=== PATIENT | female | born 1955 | race Caucasian/White ===

== ENCOUNTER 2024-05-12 09:10 | Outpatient (CLI) | payer MEDICARE, SELFPAY ==
--- NOTE | ~2024-05-12 | US_ITS ---
EXAMINATION: US retroperitoneal duplex ltd, US renal BI DATE: 05/12/2024 10:10 INDICATION: Benign essential hypertension TECHNIQUE: 1. Multiple grayscale and color Doppler images of the kidneys were obtained. 2. Multiple grayscale and pulsed Doppler images of the aorta and renal arteries were obtained. COMPARISON: None. FINDINGS: Kidneys: The right kidney measures 11.5 x 4.8 x 5.2 cm. The left kidney measures 10.8 x 4.9 x 4.9 cm. The kidn eys demonstrate normal echogenicity. There is no hydronephrosis in either kidney. No stones identifi ed. The bladder is normal. Renal arteries/vascular: The aorta peak systolic velocity is 60 cm/s. The right renal artery peak systolic velocity is 140 cm/ s in the proximal segment, 171 cm/s in the mid segment, and 112 cm/s in the distal segment. The left renal artery peak systolic velocity is 101 cm/s in the proximal segment, 132 cm/s in the mid segment, and 179 cm/s in the distal segment. IMPRESSION: 1. Normal kidneys with no hydronephrosis. 2. No Doppler evidence of significant renal artery stenosis. Reviewed, dictated and finalized at location A. IMPRESSION: 1. Normal kidneys with no hydronephrosis. 2. No Doppler evidence of significant renal artery stenosis.
== END 2024-05-12 09:11 | disposition home or self-care (01) ==
LOC: ANHIMG 09:13
PROVIDERS: PCP Physician Assistant; Visit Provider Physician Assistant
DX: I10 Essential (primary) hypertension (principal)
CPT/HCPCS: 76775; 93976

== ENCOUNTER 2024-07-06 08:26 | Outpatient (CLI) | payer MEDICARE, SELFPAY ==
--- NOTE | 2024-07-06 | EST_ITS ---
Patient Info Name: Tameka Camargo Age: 69 years : 1955 Gender: Female Ht: 64 in Wt: 180 lbs BSA: 1.95 m2 Exam Date: 07/06/2024 8:55 AM Exam Location: Echo Lab Patient Status: Outpatient Admit Date: 07/06/2024 Staff Ordering Physician: MurtazaLydia PA-C Glass Sagger: Reshma Dc RDCS Attending Provider: SIMONE MACKAY Exercise Technologist: Sherice Love CT Exercise Physician: Simone Mackay DO Exam Type: CA stress echo Study Info Indications I10 - Essential (primary) hypertension Treadmill exercise stress echocardiogram is performed. Summary 1. 1. Negative Attila exercise stress test for ischemic ST changes by ECG criteria. 2. 2. Reduced functional capacity, achieving 6.5 METs of workload. 3. 3. Baseline hypertension with hypertensive response to exercise. 4. 4. Appropriate HR response to exercise. 5. 5. Appropriate HR recovery at 1 minute post exercise. 6. 6. Negative stress echocardiogram for ischemia by wall motion analysis. 7. 7. Patient informed of the above results. Stress Echo Findings Left Ventricle Appropriate increase in LV endocardial thickening with systole. Appropriate augmentation of contractility with systole. No wall motion abnormality. Left Ventricle Normal LV systolic function, no wall motion abnormality. Protocol: Attila Stress ECG Details Stage: REST Duration (min): 2 min : 1 sec Speed (mph): 0.0 Grade (%): 0 HR (bpm): 84 SBP (mmHg): 169 DBP (mmHg): 91 METS: --- Stage: REST Duration (min): 2 min : 20 sec Speed (mph): 0.0 Grade (%): 0 HR (bpm): 92 SBP (mmHg): 169 DBP (mmHg): 91 METS: --- Stage: REST Duration (min): 18 min : 22 sec Speed (mph): 0.0 Grade (%): 0 HR (bpm): 80 SBP (mmHg): 169 DBP (mmHg): 91 METS: --- Stage: STAGE 1 Duration (min): 1 min : 0 sec Speed (mph): 1.7 Grade (%): 10 HR (bpm): 109 SBP (mmHg): 169 DBP (mmHg): 91 METS: --- Stage: STAGE 1 Duration (min): 2 min : 0 sec Speed (mph): 1.7 Grade (%): 10 HR (bpm): 120 SBP (mmHg): 169 DBP (mmHg): 91 METS: --- Stage: STAGE 1 Duration (min): 3 min : 0 sec Speed (mph): 1.7 Grade (%): 10 HR (bpm): 127 SBP (mmHg): 214 DBP (mmHg): 91 METS: --- Stage: STAGE 2 Duration (min): 1 min : 0 sec Speed (mph): 2.5 Grade (%): 12 HR (bpm): 134 SBP (mmHg): 214 DBP (mmHg): 91 METS: --- Stage: STAGE 2 Duration (min): 1 min : 3 sec Speed (mph): 0.0 Grade (%): 0 HR (bpm): 134 SBP (mmHg): 214 DBP (mmHg): 91 METS: --- Stage: RECOVERY Duration (min): 0 min : 56 sec Speed (mph): 0.0 Grade (%): 0 HR (bpm): 115 SBP (mmHg): 202 DBP (mmHg): 85 METS: --- Stage: RECOVERY Duration (min): 1 min : 56 sec Speed (mph): 0.0 Grade (%): 0 HR (bpm): 105 SBP (mmHg): 202 DBP (mmHg): 85 METS: --- Stage: RECOVERY Duration (min): 2 min : 56 sec Speed (mph): 0.0 Grade (%): 0 HR (bpm): 88 SBP (mmHg): 183 DBP (mmHg): 79 METS: --- Stage: RECOVERY Dur
== END 2024-07-06 08:27 | disposition home or self-care (01) ==
PROVIDERS: PCP Physician Assistant; Visit Provider Physician Assistant
DX: I10 Essential (primary) hypertension (principal)
CPT/HCPCS: 93351

== ENCOUNTER 2025-05-01 09:27 | Outpatient (CLI) | payer MEDICARE, SELFPAY ==
--- NOTE | ~2025-05-01 | MM_ITS ---
PROCEDURE: MM SCREENING ERIC BI W MEGHAN INDICATION: Asymptomatic, referred for screening mammogram COMPARISON: None available TECHNIQUE: Digital breast tomosynthesis craniocaudal and mediolateral oblique views of Both breasts w ere obtained with computer-aided detection to assist in interpretation of the study. FINDINGS: The breasts are heterogeneously dense, which may obscure small masses. No focal dominant mass, architectural distortion, or suspicious microcalcifications are identified. There are no features to suggest malignancy. IMPRESSION: No evidence of malignancy in the breast. Recommend continued screening mammography BI-RADS 1, NEGATIVE Reviewed, dictated and finalized at location B.
--- OUTSIDE RECORDS SUMMARY | 2025-05-01 09:44 | XMS_ITS | Encounter Summary ---
Author Organization [facility] Address 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
--- OUTSIDE RECORDS SUMMARY | 2025-05-01 09:44 | XMS_ITS | Encounter Summary ---
Author Organization [facility] Address 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
--- OUTSIDE RECORDS SUMMARY | 2025-05-01 09:45 | XMS_ITS | Clinical Summary ---
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 Gender Identity Not on file Sexual Orientation Not on file Plan of Treatment Health Maintenance Due Date Last Done Comments DTAP/TDAP/TD VACCINES (1 - Tdap) 1976 COLORECTAL SCREENING 2002 Colorectal Cancer Screening 2002 FIT-DNA Q 3 years 2002 FIT/FOBT Q 1 year 2002 Flex Sig/CT Colonography Q 5 years 2002 PNEUMOCOCCAL VACCINE 50+ YEA RS (1 of 1 - PCV) 2007 ZOSTER VACCINE (1 of 2) 2007 BREAST CANCER SCREENING 04/29/2011 04/29/2010, 03/25 OSTEOPOROSIS SCREENING 2022 INFLUENZA VACCINE (#1) 2024 RSV VACCINE (60+ or ) (1 - 1-dose 75+ series) 2032 Procedures Procedure Name Priority Date/Time Associated Diagnosis Comments MAMMO SCREEN BILAT W OR WO CAD Routine 04/29/2010 10:40 AM CDT Other Screening Mammogram from Last 3 Months or Most Recently Relevant to Health Maintenance Results * MAMMO DIGITAL SCREEN BILAT (04/29/2010 10:40 AM CDT) Anatomical Region Laterality Modality Breast Bilateral Mammography Narrative 04/29/2010 4:23 PM CDT BILATERAL FULL FIELD DIGITAL SCREENING MAMMOGRAM WITH CAD. Date of exam: 04/29/10 HISTORY: Routine Screening. TECHNIQUE: Full field digital craniocaudal and mediolateral oblique projections of both breasts were obtained. COMPARISON: 03/07, 11/01, 08/31 BREAST PARENCHYMAL COMPOSITION: Heterogeneously dense, which lowers the sensitivity of mammography. FINDINGS: No new dominant masses, suspicious calcifications, parenchymal asymmetry or areas of architectural distortion are identified in either breast. Since the prior study, there has been no significant interval change. The computer aided detection system was utilized. OVERALL ASSESSMENT: BI-RADS category 1: Negative. RECOMMENDATION: Annual mammography is recommended. Procedure Note Fany Fam - 04/29/2010 BILATERAL FULL FIELD DIGITAL SCREENING MAMMOGRAM WITH CAD. Date of exam: 04/29/10 HISTORY: Routine Screening. TECHNIQUE: Full field digital craniocaudal and mediolateral obliqueprojections of both breasts were obtained. COMPARISON: 03/07, 11/01, 08/31 BREAST PARENCHYMAL COMPOSITION: Heterogeneously dense, which lowers thesensitivity of mammography. FINDINGS: No new dominant masses, suspicious calcifications, parenchymalasymmetry or areas of architectural distortion are identified in eitherbreast. Since the prior study, there has been no significant intervalchange. The computer aided detection system was utilized. OVERALL ASSESSMENT: BI-RADS category 1: Negative. RECOMMENDATION: Annual mammography is recommended. Martha Arana Jr., MD MAMMO ORDERABLES Final Res ult from Last 3 Months or Most Recently Relevant to Health Maintenance Insurance Care Teams Returned Goods Repairer Relationship Specialty Start Date End Date Vel Alston DO PCP - General 11/14/15
--- OUTSIDE RECORDS SUMMARY | 2025-05-01 09:45 | XMS_ITS | Encounter Summary ---
Author Organization [facility] Address 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 Gender Identity Not on file Sexual Orientation Not on file documented as of this encounter Plan of Treatment Not on file documented as of this encounter Procedures Procedure Name Priority Date/Time Associated Diagnosis Comments MAMMO SCREEN BILAT W OR WO CAD Routine 03/25/2009 10:01 AM CDT documented in this encounter Results * MAMMO DIGITAL SCREEN BILAT (03/25/2009 10:01 AM CDT) Anatomical Region Laterality Modality Breast Bilateral Other 03/25/2009 10:0 1 AM CDT Narrative 03/26/2009 9:21 AM CDT [facility] [address], [place] [address] Admit Date: 03/25/2009 ANYI [place]ON Sex: F Admit Prov: MARTHA KEITH Date: 1955 Primary Care Prov: PCP, NONE CMRN: [id number] Room: JAYDONAndrea SSN: [id number] IMAGING SERVICES Ordering Prov: MARTHA KEITH Accession Number: [id number] Interpretation DIGITAL SCREENING MAMMOGRAM WITH COMPUTER ASSISTED DIAGNOSIS FINDINGS The breasts were imaged with digital mammographic technique. The parenchyma is dense bilaterally. This lowers the sensitivity of mammography in detecting disease. There is no mass, malignant calcification, lymphadenopathy or other sign of malignancy. There has been no significant change since 10/02. The CAD system does not highlight any suspicious areas. CONCLUSION No mammographic evidence of malignancy. Assessment BIRADS: 1-Negative Recommendation: Normal interval follow-up Dictated by: CESAR ZAPIEN Electronically signed by: CESAR ZAPIEN 03/26/2009 09:21 Transcribed: 03/26/2009 09:21 [facility] Procedure Note Cesar Zapien MD - 03/26/2009 [facility] [address], [place] [address] Admit Date: 03/25/2009 TRISTA ANYI S Sex: F Admit Prov: MARTHA KEITH Date: 1955 Primary Care Prov: PCP, NONE CMRN: [id number] Room: [facility] SSN: [id number] IMAGING SERVICES Ordering Prov: MARTHA KEITH Interpretation DIGITAL SCREENING MAMMOGRAM WITH COMPUTER ASSISTED DIAGNOSIS FINDINGS The breasts were imaged with digital mammographic technique. Theparenchyma is dense bilaterally. This lowers the sensitivity of mammographyin detecting disease. There is no mass, malignant calcification, lymphadenopathy or other sign of malignancy. There has been nosignificant change since 10/02. The CAD system does not highlight any suspicious areas. CONCLUSION No mammographic evidence of malignancy. Assessment BIRADS: 1-Negative Recommendation: Normal interval follow-up Dictated by: CESAR ZAPIEN Electronically signed by: CESAR ZAPIEN 03/26/2009 09:21 Transcribed: 03/26/2009 09:21 [facility] us Martha Keith Jr., MD MAMMO ORDERABLES Final Res ult documented in this encounter Visit Diagnoses Diagnosis Other screening mammogram documented in this encounter Care Teams Jewelry Repairer Relationship Specialty Start Date End Date Vel Alston DO PCP - General 11/14/15 documented as of this encounter
--- OUTSIDE RECORDS SUMMARY | 2025-05-01 09:45 | XMS_ITS | Encounter Summary ---
Author Organization [employer] Address [address] [place] [address] Care Team Providers Care Foundry Helper Name Role Phone Vel Alston DO Primary Care Provider Encounter Details Date Type Department Care Team (Late st Contact Info) Description 12/19/2002 Outpatient Historical [facility] Support Serv. ([facility]) [address] 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
--- OUTSIDE RECORDS SUMMARY | 2025-05-01 09:45 | XMS_ITS | Data Portability ---
Author Organization [facility], Main Office Address [address] [place] [address] Assessment Encounter Date Assessment Date Assessment LastModified by Organization Details LastModified Time 05/20/2023 05/20/2023 order colonoscopy next time she wants this when she retires, not sooner and did not complete cologuard. [email or web address] Not available 05/20/2023 09:39:43 Plan of Treatment Reminders Order Date Submit Date Provider Last Modified By Organization Details Last Modified Time Details Appointments None recorded. Lab HbA1c (hemoglobin A1c), blood 2022 023 [email or web address] [facility], [address], [place], [address], 4 15:32:21 microalbumi n, urine 2022 023 [email or web address] [facility], [address], [place], [address], 4 15:32:21 microalbumi n/creatinin e, mass ratio, urine 2022 023 [email or web address] [facility], [address], [place], [address], 4 15:32:21 lipid panel, serum 2022 023 [facility], [address], [place], [address], 4 15:32:21 CBC w/ auto diff 2022 023 [email or web address] [facility], [address], [place], [address], 4 15:32:21 hepatic function panel, serum 2022 023 [email or web address] [facility], [address], [place], [address], 4 15:32:21 BMP, serum or plasma 2022 023 GEORGE [facility], [address], [place], [address], 4 13:34:37 TSH + free T4, serum 2022 023 [email or web address] [facility], [address], [place], [address], 4 15:32:22 Referral assistant clinical director referral 2022 023 [facility] [address] [facility], [address] [facility], [place], [address], 3 11:54:52 Procedures None recorded. Surgeries None recorded. Imaging MAMMO, screening, digital, bilateral 2022 023 GEORGE Not available 3 11:42:26 Medication Orders None recorded. Patient TargetsNo targets recorded. Patient InstructionsNo instructions recorded. 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 Referral for Dec reased hearing Referring Physician: Lydia Hauser, Internal Medicine, Encounter Date: 05/20/2023 Results Created Date Observation Date Name Description Value Unit Range Abnormal Flag Note LastModifiedBy Organization Detail LastModifiedTime 09/23/20 21 09/24/2021 LIPID PANEL WITH LDL/H DL RATIO LDL chol calc ([facility]) 179 mg/dL 0-99 above high normal Not Available [facility] ([facility]) [address] [facility], [place], [address], 09/24/2021 05:08:55 09/23/20 21 09/24/2021 LIPID PANEL WITH LDL/H DL RATIO cholesterol, total 272 mg/dL 100-19 9 above high normal Not Available [facility] ([facility]) [address] [facility], [place], [address], 09/24/2021 05:08:55 09/23/20 21 09/24/2021 LIPID PANEL WITH LDL/H DL RATIO triglyceride s 147 mg/dL 0-149 Not Available [facility] ([facility]) [address] [facility], [place], [address], 09/24/2021 05:08:55 09/23/20 21 09/24/2021 LIPID PANEL WITH LDL/H DL RATIO HDL cholesterol 67 mg/dL >39 Not Available [facility] ([facility]) [address] [place], [address], 09/24/2021 05:08:55 09/23/20 21 09/24/2021 LIPID PANEL WITH LDL/H DL RATIO VLDL cholesterol laura 26 mg/dL 5-40 Not Available [facility] ([facility]) [address] [place], [address], 09/24/2021 05:08:55 09/23/20 21 09/24/2021 LIPID PANEL WITH LDL/H DL RATIO comment: licensing coordinator Not Available [facility] ([facility]) [address] [place], [address], 09/24/2021 05:08:55 09/23/20 21 09/24/2021 LIPID PANEL WITH LDL/H DL RATIO LDL/HDL ratio 2.7 ratio 0.0-3. 2 LDL/H DL Ratio Men Women 1/2 Avg.R isk 1.0 1.5 Avg.R isk 3.6 3.2 2X Avg.R isk 6.2 5.0 3X Avg.R isk 8.0 6.1 Not Available [facility] ([facility]) [address] [facility], [place], [address], 09/24/2021 05:08:55 04/30/20 22 05/01/2022 HEMOG LOBIN A1C hemoglobin A1C 6.5 % 4.8-5. 6 above high normal Predi abete s: 5.7 - 6.4 Diabe jah: >6.4 Glyce swapna contr ol for adult s with diabe jah: <7.0 Not Available [facility] ([facility]) [address] [place], [address], 05/01/2022 05:10:17 04/30/20 22 05/01/2022 LIPID PANEL W/ CHOL/ HDL RATIO cholesterol, total 229 mg/dL 100-19 9 above high normal Not Available [facility] ([facility]) [address] [place], [address], 05/01/2022 05:10:16 04/30/20 22 05/01/2022 LIPID PANEL W/ CHOL/ HDL RATIO triglyceride s 124 mg/dL 0-149 Not Available [facility] ([facility]) [address] [place], [address], 05/01/2022 05:10:16 04/30/20 22 05/01/2022 LIPID PANEL W/ CHOL/ HDL RATIO HDL cholesterol 62 mg/dL >39 Not Available [facility] ([facility]) [address] [place], [address], 05/01/2022 05:10:16 04/30/20 22 05/01/2022 LIPID PANEL W/ CHOL/ HDL RATIO VLDL cholesterol laura 22 mg/dL 5-40 Not Available [facility] ([facility]) [address] [place], [address], 05/01/2022 05:10:16 04/30/20 22 05/01/2022 LIPID PANEL W/ CHOL/ HDL RATIO LDL chol calc ([facility]) 145 mg/dL 0-99 above high normal Not Available [facility] ([facility]) [address] [place], [address], 05/01/2022 05:10:16 04/30/20 22 05/01/2022 LIPID PANEL W/ CHOL/ HDL RATIO comment: licensing coordinator Not Available [facility] ([facility]) [address] [place], [address], 05/01/2022 05:10:16 04/30/20 22 05/01/2022 LIPID PANEL W/ CHOL/ HDL RATIO T. chol/HDL ratio 3.7 ratio 0.0-4. 4 T. Chol/ HDL Ratio Men Women 1/2 Avg.R isk 3.4 3.3 Avg.R isk 5.0 4.4 2X Avg.R isk 9.6 7.1 3X Avg.R isk 23.4 11.0 Not Available [facility] ([facility]) [address] [place], [address], 05/01/2022 05:10:16 04/30/20 22 05/01/2022 COMP. METAB OLIC PANEL (14) glucose 99 mg/dL 65-99 Not Available [facility] ([facility]) [address] [place], [address], 05/01/2022 05:10:14 04/30/20 22 05/01/2022 COMP. METAB OLIC PANEL (14) BUN 17 mg/dL 8-27 Not Available [facility] ([facility]) [address] [place], [address], 05/01/2022 05:10:14 04/30/20 22 05/01/2022 COMP. METAB OLIC PANEL (14) creatinine 0.74 mg/dL 0.57-1 .00 Not Available [facility] ([facility]) [address] [place], [address], 05/01/2022 05:10:14 04/30/20 22 05/01/2022 COMP. METAB OLIC PANEL (14) eGFR 90 mL/mi n/1.7 3 >59 Not Available [facility] ([facility]) [address] [facility], [place], [address], 05/01/2022 05:10:14 04/30/20 22 05/01/2022 COMP. METAB OLIC PANEL (14) BUN/creatini ne ratio 23 12-28 Not Available [facility] ([facility]) [address] [place], [address], 05/01/2022 05:10:14 04/30/20 22 05/01/2022 COMP. METAB OLIC PANEL (14) sodium 143 mmol/ L 134-14 4 Not Available [facility] ([facility]) [address] [facility], [place], [address], 05/01/2022 05:10:14 04/30/20 22 05/01/2022 COMP. METAB OLIC PANEL (14) potassium 4.4 mmol/ L 3.5-5. 2 Not Available [facility] ([facility]) [address] [facility], [place], [address], 05/01/2022 05:10:14 04/30/20 22 05/01/2022 COMP. METAB OLIC PANEL (14) chloride 104 mmol/ L 96-106 Not Available [facility] ([facility]) [address] [place], [address], 05/01/2022 05:10:14 04/30/20 22 05/01/2022 COMP. METAB OLIC PANEL (14) carbon dioxide, total 25 mmol/ L 20-29 Not Available [facility] ([facility]) [address] [place], [address], 05/01/2022 05:10:14 04/30/20 22 05/01/2022 COMP. METAB OLIC PANEL (14) calcium 9.3 mg/dL 8.7-10 .3 Not Available [facility] ([facility]) [address] [facility], [place], [address], 05/01/2022 05:10:14 04/30/20 22 05/01/2022 COMP. METAB OLIC PANEL (14) A/G ratio 1.8 1.2-2. 2 Not Available [facility] ([facility]) [address] [facility] [place], [address], 05/01/2022 05:10:14 04/30/20 22 05/01/2022 COMP. METAB OLIC PANEL (14) protein, total 6.6 g/dL 6.0-8. 5 Not Available [facility] ([facility]) [address] [facility] [place], [address], 05/01/2022 05:10:14 04/30/20 22 05/01/2022 COMP. METAB OLIC PANEL (14) albumin 4.2 g/dL 3.8-4. 8 Not Available [facility] ([facility]) [address] [facility], [place], [address], 05/01/2022 05:10:14 04/30/20 22 05/01/2022 COMP. METAB OLIC PANEL (14) globulin, total 2.4 g/dL 1.5-4. 5 Not Available [facility] ([facility]) [address] [facility] [place], [address], 05/01/2022 05:10:14 04/30/20 22 05/01/2022 COMP. METAB OLIC PANEL (14) bilirubin, total 0.2 mg/dL 0.0-1. 2 Not Available [facility] ([facility]) [address] [facility] [place], [address], 05/01/2022 05:10:14 04/30/20 22 05/01/2022 COMP. METAB OLIC PANEL (14) alkaline phosphatase 85 IU/L 44-121 Not Available [facility] ([facility]) [address] [facility] [place], [address], 05/01/2022 05:10:14 04/30/20 22 05/01/2022 COMP. METAB OLIC PANEL (14) AST (SGOT) 36 IU/L 0-40 Not Available [facility] ([facility]) [address] [facility] [place], [address], 05/01/2022 05:10:14 04/30/20 22 05/01/2022 COMP. METAB OLIC PANEL (14) ALT (SGPT) 40 IU/L 0-32 above high normal Not Available [facility] ([facility]) [address] [facility] [place], [address], 05/01/2022 05:10:14 04/30/20 22 05/01/2022 CBC WITH DIFFE RENTI AL/PL ATELE T WBC 5.5 x10e3 /uL 3.4-10 .8 Not Available [facility] ([facility]) [address] [facility] [place], [address], 05/01/2022 05:10:13 04/30/20 22 05/01/2022 CBC WITH DIFFE RENTI AL/PL ATELE T RBC 4.24 x10e6 /uL 3.77-5 .28 Not Available [facility] ([facility]) [address] [facility] [place], [address], 05/01/2022 05:10:13 04/30/20 22 05/01/2022 CBC WITH DIFFE RENTI AL/PL ATELE T hemoglobin 13.8 g/dL 11.1-1 5.9 Not Available [facility] ([facility]) [address] [facility] [place], [address], 05/01/2022 05:10:13 04/30/20 22 05/01/2022 CBC WITH DIFFE RENTI AL/PL ATELE T hematocrit 40.8 % 34.0-4 6.6 Not Available [facility] ([facility]) [address] [place], [address], 05/01/2022 05:10:13 04/30/20 22 05/01/2022 CBC WITH DIFFE RENTI AL/PL ATELE T MCV 96 fL 79-97 Not Available [facility] ([facility]) [address] [facility], [place], [address], 05/01/2022 05:10:13 04/30/20 22 05/01/2022 CBC WITH DIFFE RENTI AL/PL ATELE T MCH 32.5 pg 26.6-3 3.0 Not Available [facility] ([facility]) [address] [facility], [place], [address], 05/01/2022 05:10:13 04/30/20 22 05/01/2022 CBC WITH DIFFE RENTI AL/PL ATELE T MCHC 33.8 g/dL 31.5-3 5.7 Not Available [facility] ([facility]) [address] [facility], [place], [address], 05/01/2022 05:10:13 04/30/20 22 05/01/2022 CBC WITH DIFFE RENTI AL/PL ATELE T RDW 13.5 % 11.7-1 5.4 Not Available [facility] ([facility]) [address] [facility], [place], [address], 05/01/2022 05:10:13 04/30/20 22 05/01/2022 CBC WITH DIFFE RENTI AL/PL ATELE T platelets 202 x10e3 /uL 150-45 0 Not Available [facility] ([facility]) [address] [facility], [place], [address], 05/01/2022 05:10:13 04/30/20 22 05/01/2022 CBC WITH DIFFE RENTI AL/PL ATELE T neutrophils 54 % not estab. Not Available [facility] ([facility]) [address] [facility], [place], [address], 05/01/2022 05:10:13 04/30/20 22 05/01/2022 CBC WITH DIFFE RENTI AL/PL ATELE T lymphs 34 % not estab. Not Available [facility] ([facility]) [address] [facility], [place], [address], 05/01/2022 05:10:13 04/30/20 22 05/01/2022 CBC WITH DIFFE RENTI AL/PL ATELE T monocytes 10 % not estab. Not Available [facility] ([facility]) [address] [facility], [place], [address], 05/01/2022 05:10:13 04/30/20 22 05/01/2022 CBC WITH DIFFE RENTI AL/PL ATELE T eos 2 % not estab. Not Available [facility] ([facility]) [address] [facility], [place], [address], 05/01/2022 05:10:13 04/30/20 22 05/01/2022 CBC WITH DIFFE RENTI AL/PL ATELE T basos 0 % not estab. Not Available [facility] ([facility]) [address] [facility], [place], [address], 05/01/2022 05:10:13 04/30/20 22 05/01/2022 CBC WITH DIFFE RENTI AL/PL ATELE T immature cells licensing coordinator Not Available [facility] ([facility]) [address] [place], [address], 05/01/2022 05:10:13 04/30/20 22 05/01/2022 CBC WITH DIFFE RENTI AL/PL ATELE T neutrophils (absolute) 3.0 x10e3 /uL 1.4-7. 0 Not Available [facility] ([facility]) [address] [place], [address], 05/01/2022 05:10:13 04/30/20 22 05/01/2022 CBC WITH DIFFE RENTI AL/PL ATELE T lymphs (absolute) 1.9 x10e3 /uL 0.7-3. 1 Not Available [facility] ([facility]) [address] [facility], [place], [address], 05/01/2022 05:10:13 04/30/20 22 05/01/2022 CBC WITH DIFFE RENTI AL/PL ATELE T monocytes(ab solute) 0.5 x10e3 /uL 0.1-0. 9 Not Available [facility] ([facility]) [address] [facility], [place], [address], 05/01/2022 05:10:13 04/30/20 22 05/01/2022 CBC WITH DIFFE RENTI AL/PL ATELE T eos (absolute) 0.1 x10e3 /uL 0.0-0. 4 Not Available [facility] ([facility]) [address] [place], [address], 05/01/2022 05:10:13 04/30/20 22 05/01/2022 CBC WITH DIFFE RENTI AL/PL ATELE T baso (absolute) 0.0 x10e3 /uL 0.0-0. 2 Not Available [facility] ([facility]) [address] [facility], [place], [address], 05/01/2022 05:10:13 04/30/20 22 05/01/2022 CBC WITH DIFFE RENTI AL/PL ATELE T immature granulocytes 0 % not estab. Not Available [facility] ([facility]) [address] [place], [address], 05/01/2022 05:10:13 04/30/20 22 05/01/2022 CBC WITH DIFFE RENTI AL/PL ATELE T immature grans (abs) 0.0 x10e3 /uL 0.0-0. 1 Not Available [facility] ([facility]) [address] [place], [address], 05/01/2022 05:10:13 04/30/20 22 05/01/2022 CBC WITH DIFFE RENTI AL/PL ATELE T NRBC licensing coordinator Not Available [facility] ([facility]) [address] [place], [address], 05/01/2022 05:10:13 04/30/20 22 05/01/2022 CBC WITH DIFFE RENTI AL/PL ATELE T hematology comments: licensing coordinator Not Available [facility] ([facility]) [address] [facility], [place], [address], 05/01/2022 05:10:13 04/30/20 22 05/01/2022 TSH+F REE T4 TSH 0.642 uIU/m L 0.450- 4.500 Not Available [facility] ([facility]) [address] [facility], [place], [address], 05/01/2022 05:10:12 04/30/20 22 05/01/2022 TSH+F REE T4 T4,free(dire ct) 1.07 NG/dL 0.82-1 .77 Not Available [facility] ([facility]) [address] [place], [address], 05/01/2022 05:10:12 04/30/20 22 05/01/2022 URINA LYSIS , ROUTI NE W/RFX WBC esterase negati ve negati ve Not Available [facility] ([facility]) [address] [place], [address], 05/01/2022 05:10:11 04/30/20 22 05/01/2022 URINA LYSIS , ROUTI NE W/RFX specific gravity 1.024 1.005- 1.030 Not Available [facility] ([facility]) [address] [place], [address], 05/01/2022 05:10:11 04/30/20 22 05/01/2022 URINA LYSIS , ROUTI NE W/RFX pH 5.5 5.0-7. 5 Not Available [facility] ([facility]) [address] [place], [address], 05/01/2022 05:10:11 04/30/20 22 05/01/2022 URINA LYSIS , ROUTI NE W/RFX urine-color yellow yellow Not Available [facility] ([facility]) [address] [place], [address], 05/01/2022 05:10:11 04/30/20 22 05/01/2022 URINA LYSIS , ROUTI NE W/RFX appearance clear clear Not Available [facility] ([facility]) [address] [place], [address], 05/01/2022 05:10:11 04/30/20 22 05/01/2022 URINA LYSIS , ROUTI NE W/RFX protein negati ve negati ve/tra ce Not Available [facility] ([facility]) [address] [place], [address], 05/01/2022 05:10:11 04/30/20 22 05/01/2022 URINA LYSIS , ROUTI NE W/RFX glucose negati ve negati ve Not Available [facility] ([facility]) [address] [place], [address], 05/01/2022 05:10:11 04/30/20 22 05/01/2022 URINA LYSIS , ROUTI NE W/RFX urobilinogen ,semi-qn 0.2 mg/dL 0.2-1. 0 Not Available [facility] ([facility]) [address] [place], [address], 05/01/2022 05:10:11 04/30/20 22 05/01/2022 URINA LYSIS , ROUTI NE W/RFX ketones negati ve negati ve Not Available [facility] ([facility]) [address] [place], [address], 05/01/2022 05:10:11 04/30/20 22 05/01/2022 URINA LYSIS , ROUTI NE W/RFX occult blood negati ve negati ve Not Available [facility] ([facility]) [address] [facility], [place], [address], 05/01/2022 05:10:11 04/30/20 22 05/01/2022 URINA LYSIS , ROUTI NE W/RFX bilirubin negati ve negati ve Not Available [facility] ([facility]) [address] [facility], [place], [address], 05/01/2022 05:10:11 04/30/20 22 05/01/2022 URINA LYSIS , ROUTI NE W/RFX nitrite, urine negati ve negati ve Not Available [facility] ([facility]) [address] [facility], [place], [address], 05/01/2022 05:10:11 04/30/20 22 05/01/2022 URINA LYSIS , ROUTI NE W/RFX microscopic examination commen t Micro scopi c not indic ated and not perfo rmed. Not Available [facility] ([facility]) [address] [facility], [place], [address], 05/01/2022 05:10:11 07/07/20 21 07/07/2021 XR, cervi laura spine No observ ation record ed. [id number] , [place], [address], 01/27/2023 02:59:32 07/10/20 21 07/10/2021 US, neck No observ ation record ed. [id number] , [place], [address], 01/27/2023 02:59:32 06/29/20 22 06/26/2022 MAMMO , scree rossi, digit al, bilat eral No observ ation record ed. [id number] [facility] [address] [place] [address] , [place], [address], 01/27/2023 02:59:32 06/18/20 23 04/13/2023 XR, chest , 2 view No observ ation record ed. [email or web address] [facility] [address] [place], [address], 06/18/2023 16:21:52 07/09/20 23 06/14/2023 audio gram No observ ation record ed. [email or web address] [facility] [address] [facility] [address], [place], [address], 07/09/2023 16:24:21 10/14/20 23 10/14/2023 MAMMO , leonor richey, digit al, bilat eral No observ ation record ed. [email or web address] [address] , [place], [address], 12/04/2023 21:05:40 Result Notes None recorded. Problems Name Problem SNOMED Code Status Onset Date Resolution Date Notes Provider Name and Address Organization Details Recorded Time Benign essential hypertension 7262087 Active 2018 Not Available [facility] 3 02:51:30 Blood glucose outside reference range 006624471 Active 2021 Not Available [facility] 3 02:51:31 Menopausal flushing 458782788 Active 2021 Not Available [facility] 3 02:51:31 Gastroesophag eal reflux disease 459904242 Active 2018 Not Available [facility] 3 02:51:31 Mixed hyperlipidemi a 593390043 Active 2021 Not Available [facility] 3 02:51:31 Changing shape of pigmented skin lesion 646379284 Active 2022 Not Available [facility] 3 02:51:31 Well controlled type 2 diabetes mellitus 773453194 Active 2021 Not Available [facility] 3 02:51:31 Decreased hearing 930417583 Active 2022 VANCE Dumont [address], [place], [address] , [facility] 3 09:39:10 Problem Notes None recorded. Procedures Surgical History Date Name Laterality Status Provider Name and Address Organization Details Recorded Time 11/29/19 07 Date of Last Colonoscopy completed Not Available [facility] 01/27/2023 02:44:51 Hysterectomy completed Not Available [facility] 01/27/2023 02:44:54 Imaging Results None recorded. Procedure Notes None recorded. Medical Equipment None Reported. Allergies No known drug allergies Medications Name Sig Start Date Stop Date Status Note LastModified by Organization Details LastModified Time atorvastat in 10 mg tablet TAKE 1 TABLET DAILY AT BEDTIME 2022 active Not Available Not Available Not Avai lable azithromyc in 250 mg tablet 05/19 completed Not Available Not Available Not Available prednisone 20 mg tablet 05/19 completed Not Available Not Available Not Available omeprazole 40 mg capsule,de layed release active Not Available Not Available Not Available pantoprazo le 20 mg tablet,del ayed release TK 1 T PO D 12/07 completed Not Available Not Available Not Available alprazolam 0.25 mg tablet TAKE 1 TABLET TWICE A DAY BY ORAL ROUTE NEEDED. active Not Available Not Available No t Available methocarba mol 750 mg tablet TAKE 1 TABLET 3 TIMES A DAY BY ORAL ROUTE. active Not Available Not Available No t Available estradiol 1 mg tablet take 1 tablet by mouth daily 08/12 completed taking half tablet daily. Not Available Not Available Not Available OneTouch Ultra Test strips active Not Available Not Available Not Available benzonatat e 100 mg capsule 05/19 completed Not Available Not Available Not Available pantoprazo le 40 mg tablet,del ayed release TAKE 1 TABLET DAILY 2022 active Not Available Not Available Not Avai lable nystatin 100,000 unit/gram topical cream APPLY TO RASH AREA TWICE DAILY NEEDED active Not Available Not Available No t Available clotrimazo le-betamet hasone 1 %-0.05 % topical cream DAHLIA SML AMT EXT AA BID 09/28 completed Not Available Not Available Not Available valsartan 320 mg tablet TAKE 1 TABLET DAILY 2022 active Not Available Not Available Not Avai lable omeprazole 20 mg capsule,de layed release Take 1 capsule every day by oral route. 11/13 completed Not Available Not Available Not Available nystatin 100,000 unit/gram topical powder APPLY TO RASH AREA TWICE DAILY NEEDED active Not Available Not Available No t Available amoxicilli n 875 mg-potassi um clavulanat e 125 mg tablet Take 1 tablet every 12 hours by oral route. 01/24 completed Not Available Not Available Not Available valsartan 160 mg tablet TK 1 T PO QD 07/20 completed Not Available Not Available Not Available bupropion HCl XL 150 mg 24 hr tablet, extended release Take 1 tablet every day by oral route in the morning. 11/13 completed Not Available Not Available Not Available OneTouch UltraMini kit use as directed active Not Available Not Available No t Available hydrochlor othiazide 12.5 mg tablet TAKE 1 TABLET DAILY IN THE MORNING 2022 active Not Available Not Available Not Avai lable omeprazole 20 mg tablet,del ayed release Take 1 tablet as needed by oral route. 05/20 completed Not Available Not Available Not Available OneTouch Ultra2 Meter USE DIRECTED active Not Available Not Available No t Available OneTouch Delica Plus Lancet 33 gauge active Not Available Not Available Not Available Fluzone Quad (PF) 60 mcg (15 mcg x 4)/0.5 mL IM syringe active Not Available Not Available N ot Available Flucelvax Quad (PF) 60 mcg (15 mcg x 4)/0.5 mL IM syringe PHARMACY ADMINIST ERED 03/13 completed Not Available Not Available Not Available Vitals Date Recorded Body mass index (BMI) Body height Oxygen saturation Oxygen saturation in Arterial blood by Pulse oximetry Heart rate Respiratory rate Body weight Systolic blood pressure Diastolic blood pressure Provider Name and Address Organization Details Last Updated DateTime 2 30.7 kg/m2 162.56 cm 98 % 98 % 73 /min 16 /min 03165.3 2 g 124 mm[Hg] 78 mm[Hg] Not Available [facility] 3 02:49:50 Date Recorded Systolic blood pressure Diastolic blood pressure Provider Name and Address Organization Details Last Updated DateTime 05/20/2023 140 mm[Hg] 80 mm[Hg] VANCE Dumont [address], [facility] [address], [place], [address], [facility] [employer] 05/20/2023 09:40:10 Date Recorded Body height Body mass index (BMI) Body weight Body temperature Heart rate Oxygen saturation Oxygen saturation in Arterial blood by Pulse oximetry Systolic blood pressure Diastolic blood pressure Provider Name and Address Organization Details Last Updated DateTime 3 162.56 cm 30.7 kg/m2 77943.0 3 g 98.2 [degF] 83 /min 97 % 97 % 132 mm[Hg] 80 mm[Hg] Alyssa Rae RN [facility] [employer] [facility] 3 09:19:25 Date Recorded Body mass index (BMI) Body height Oxygen saturation Oxygen saturation in Arterial blood by Pulse oximetry Heart rate Body temperature Body weight Systolic blood pressure Diastolic blood pressure Provider Name and Address Organization Details Last Updated DateTime 1 31 kg/m2 162.56 cm 98 % 98 % 86 /min 97.7 [degF] 29240.5 g 118 mm[Hg] 70 mm[Hg] Not Available [facility] 3 02:49:49 Date Recorded Body mass index (BMI) Body height Oxygen saturation Oxygen saturation in Arterial blood by Pulse oximetry Heart rate Body temperature Body weight Systolic blood pressure Diastolic blood pressure Systolic blood pressure Diastolic blood pressure Provider Name and Address Organization Details Last Updated DateTime 1 31.1 kg/m2 162.56 cm 98 % 98 % 86 /min 97.5 [degF] 66807.2 2 g 120 mm[Hg] 80 mm[Hg] 142 mm[Hg] 80 mm[Hg] Not Available [facility] 3 02:49:50 Date Recorded Body mass index (BMI) Body height Oxygen saturation Oxygen saturation in Arterial blood by Pulse oximetry Heart rate Respiratory rate Body temperature Body weight Systolic blood pressure Diastolic blood pressure Systolic blood pressure Diastolic blood pressure Provider Name and Address Organization Details Last Updated DateTime 2 31.2 kg/m2 162.56 cm 96 % 96 % 96 /min 16 /min 98 [degF] 49135.8 1 g 134 mm[Hg] 76 mm[Hg] 128 mm[Hg] 80 mm[Hg] Not Available [facility] 02:49:50 Social History Question Answer Notes LastModified by [employer] Details LastModified Time Tobacco Smoking Status Former Smoker Not Available [facility] 01/27/2023 02:42:14 What Is Your Level Of Caffeine Consumption? Occasional [id number] Information not available 01/27/2023 How Much Tobacco Do You Chew? None [id number] Information not available 01/27/2023 In The 14 Days Before Symptom Onset, Have You Had Close Contact With A Laboratory-confir med COVID-19 While That Case Was Ill? No [id number] Information not available 01/27/2023 In The 14 Days Before Symptom Onset, Have You Had Close Contact With A Person Who Is Under Investigation For COVID-19 While That Person Was Ill? No [id number] Information not available 01/27/2023 What Type Of Diet Are You Following? REGULAR [id number] Information not available 01/27/2023 Which Illicit Or Recreational Drugs Have You Used? None [id number] Information not available 01/27/2023 What Was The Date Of Your Most Recent Tobacco Screening? 03/13/2021 [id number] Information not available 01/27/2023 At What Age Did You Start Smoking Tobacco? 32 [id number] Information not available 01/27/2023 How Much Tobacco Do You Smoke? 1 PPD [id number] Information not available 01/27/2023 Sex: Unknown Functional Status Question Answer Note LastModified by [employer] Details LastModified Time What is your level of alcohol consumption? Occasional [id number] Information not available 01/27/2023 Do you or have you ever used smokeless tobacco? 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 Never used electronic cigarettes [id number] Information not available 01/27/2023 What is your exercise level? Occasional [id number] Information not available 01/27/2023 Mental Status None recorded. Family History Relationship Description Onset Age of this Age Resolved Age Notes LastModified by Organization Details LastModified Time Mother Suspected endometrial cancer [id number] Not available 01/27/2023 02:45:00 Father Malignant lymphoma [id number] Not available 01/27/2023 02:45:00 Sister Family history of malignant neoplasm Esopha geal [id number] Not available 01/27/2023 02:45:00 Medical History Condition Response BACK / NECK PROBLEMS Y HEARTBURN / REFLUX Y HYPERTENSION Y Gynecological History Statement/Question Response Date of Last Pap 11/29/2017 Date of Last Mammogram 03/17/2021 Date of Last Colonoscopy 11/29/2006 Sexually Active? N Obstetrics History GPAL:G 0 P 0 0 0 0 Immunizations Vaccine Type Date Status Note Provider Nam e and Address Organization Details Recorded Time Influenza, MDCK, quadrivalent, PF 0 completed Not Available [facility] 01/27/2023 02:58:54 Influenza, high-dose, quadrivalent, PF 2 completed Not Available [facility] 01/27/2023 02:58:55 influenza, unspecified formulation 9 completed Not Available [facility] 01/27/2023 02:58:55 Past Encounters Encounter ID Performer Location Encounter Start Date Encounter Closed Date Diagnosis/Indication Diagnosis SNOMED-CT Code Diagnosis ICD10 Code Diagnosis Note [id number] VANCE Dumont [facility] [place] [address] [place] [address] 03/13/2021 00:00:00 03/28/2021 17:56:25 [id number] VANCE Dumont [facility] [place] [address] [place] [address] 07/07/2021 00:00:00 07/28/2021 22:56:22 [id number] VANCE Dumont [facility] [place] [address] [place] [address] 09/25/2021 00:00:00 09/25/2021 17:56:22 [id number] Braden Hurtado MD [facility] [place] [address] [place] [address] 05/08/2022 00:00:00 05/11/2022 11:02:02 [id number] VANCE Dumont [facility] [place] [address] [place] [address] 11/13/2022 00:00:00 11/25/2022 19:44:44 [id number] VANCE Dumont [facility] [place] [address] [place] [address] 05/20/2023 09:12:06 05/20/2023 09:44:54 Adult health examination 818206646 Z00.01 annual wellness completed Benign ess ential hypertension 8649144 I10 stable on valsartan 320mg daily and hctz 12.5mg daily Gastroesop hageal reflux disease 810852915 K21.9 stable on daily PPI therapy Mixed hyperlipidemia 267 870314 E78.2 stable on statin therapy. repeat labs in oct. Well contr olled type 2 diabetes mellitus 147911268 E11.9 diet managed. repeat labs in oct. a1c is 6.2%. Screening mammography 24 281185 Z12.31 mammogram due in may Long-term drug therapy 069249860 Z79.899 next labs due in oct. Decreased hearing 330880 001 H91.90 refer to audiologis t Health Concerns Section Related Observation LastModified by Organization Detai ls LastModified Time None Recorded Concern Status LastModified by Organization Details LastModified Time None Recorded Advance Directives Directive None Recorded Payers Encounter Date Sequence Insurance Name Policy Number Policy Diez Covered Member ID Diez Member ID Guarantor Name 05/20/2023 1 [employer] - [employer] [id number] Tameka Camargo [id number] Tameka Camargo Notes Date Note Type Note Provider Name and Address Organization Details Recorded Time 021 text/ht ml NeckReported bypatient.Location:left Quality:aching; frequent; not changing Severity:moderate; pain level 2/10; worst pain 6/10 Duration:1 months Timing:gradual Context:cannot identify Alleviating Factors:NSAIDs Aggravating Factors:cannot identify Associated Symptoms:no weakness; no numbness; no swelling; no redness; no warmth; no ecchymosis; no catching/locking; no popping/clicking; no buckling; no grinding; no instability; no radiation down arm; no drainage; no fever; no chills; no weight loss; no change in bowel/bladder habits;tingling Previous Surgery:none Prior Imaging:none Previous Injections:none Previous PT:none Work Related:no Working:no Not Available [employer] [facility] 07/28/2021 22:56:22 021 text/ht ml Anxiety, Generalized DisorderReported bypatient.Associated Symptoms:no difficulty concentrating; no difficulty controlling worry; no difficulty swallowing; no anxiety; no excessive sweating; no hot flashes; no palpitations; no shortness of breath; no nausea; no diarrhea; no fatigue; no irritability; no muscle tension; no muscle aches; no trembling; no twitching; no headaches; no restlessness; no sleep disturbancesHypertensionReported bypatient.Onset/Timing:better Self Care:not under emotional stress Associated Symptoms:no shortness of breath; no fatigue; no palpitations; no decline in exercise capacity; no snoringReflux/GERDReported bypatient.Symptomsasymptomatic; no difficulty swallowing; no pain swallowing; no postprandial pain Severity:improving Context:non-smoker; no drug/alcohol abuse; no drug alcohol withdrawal; not related to food/drink Associated Symptoms:no frequent coughing; no feeling of fullness/mass in throat; no hoarseness; no food getting stuck; no belching/burping; no nausea; no vomiting; not vomiting blood; no regurgitation; no shortness of breath; no chest pain; no heartburn; no difficulty swallowing; no pain when swallowing; no bad taste; no decreased appetite; no weight loss; no black/tarry stools; no fatigue; no throat pain; no dental erosion; no bloating; no early satiety; no halitosis Not Available [facility] [employer] 09/25/2021 17:56:22 022 text/ht ml Anxiety, Generalized DisorderReported bypatient.Associated Symptoms:no difficulty concentrating; no difficulty controlling worry; no difficulty swallowing; no anxiety; no excessive sweating; no hot flashes; no palpitations; no shortness of breath; no nausea; no diarrhea; no fatigue; no irritability; no muscle tension; no muscle aches; no trembling; no twitching; no headaches; no restlessness; no sleep disturbancesGeneric HPI TemplateReported bypatient.Notes:wellness examHypertensionReported bypatient.Onset/Timing:better Self Care:not under emotional stress Associated Symptoms:no shortness of breath; no fatigue; no palpitations; no decline in exercise capacity; no snoringReflux/GERDReported bypatient.Symptomsasymptomatic; no difficulty swallowing; no pain swallowing; no postprandial pain Severity:improving Context:non-smoker; no drug/alcohol abuse; no drug alcohol withdrawal; not related to food/drink Associated Symptoms:no frequent coughing; no feeling of fullness/mass in throat; no hoarseness; no food getting stuck; no belching/burping; no nausea; no vomiting; not vomiting blood; no regurgitation; no shortness of breath; no chest pain; no heartburn; no difficulty swallowing; no pain when swallowing; no bad taste; no decreased appetite; no weight loss; no black/tarry stools; no fatigue; no throat pain; no dental erosion; no bloating; no early satiety; no halitosis Not Available [facility] 05/11/2022 11:02:02 022 text/ht ml Anxiety, Generalized DisorderReported bypatient.Associated Symptoms:no difficulty concentrating; no difficulty controlling worry; no difficulty swallowing; no anxiety; no excessive sweating; no hot flashes; no palpitations; no shortness of breath; no nausea; no diarrhea; no fatigue; no irritability; no muscle tension; no muscle aches; no trembling; no twitching; no headaches; no restlessness; no sleep disturbancesHypertensionReported bypatient.Onset/Timing:better Self Care:not under emotional stress Associated Symptoms:no shortness of breath; no fatigue; no palpitations; no decline in exercise capacity; no snoringReflux/GERDReported bypatient.Symptomsasymptomatic; no difficulty swallowing; no pain swallowing; no postprandial pain Severity:improving Context:non-smoker; no drug/alcohol abuse; no drug alcohol withdrawal; not related to food/drink Associated Symptoms:no frequent coughing; no feeling of fullness/mass in throat; no hoarseness; no food getting stuck; no belching/burping; no nausea; no vomiting; not vomiting blood; no regurgitation; no shortness of breath; no chest pain; no heartburn; no difficulty swallowing; no pain when swallowing; no bad taste; no decreased appetite; no weight loss; no black/tarry stools; no fatigue; no throat pain; no dental erosion; no bloating; no early satiety; no halitosis Not Available [facility] 11/25/2022 19:44:44 023 text/ht ml DiabetesReported bypatient.Control:usually well controlled; improved since last visit Compliance:compliant with medications; compliant with follow-up visits; compliant with diet; compliant with home glucose monitoring; had eye doctor visit in last year; had dietitian visit in last year; wears a medic alert bracelet or necklace; rapid-acting carbohydrate kept in car;noncompliant with home glucose monitoring Self Care:not monitoring home glucose Context:normal range of home blood sugars (in the low 100s); seeing eye doctor regularly; checking feet regularly Associated Symptoms:no weight gain; no weight loss; no dizziness; no sweats; no headaches; no confusion; no increased thirst; no increased appetite; no increased urination; no blurred vision; no numbness of feet; no calluses on feet; no coronary artery disease; no kidney disease; no peripheral vascular disease; no diabetic retinopathy; no diabetic neuropathyHyperlipidemiaReported bypatient.Duration:chronic Control:usually well controlled; improving; at goal Compliance:compliant; compliant with diet; exercises Complications:no coronary artery disease; no peripheral artery disease; no cardiovascular diseaseHypertensionReported bypatient.Onset/Timing:better Alleviating Factors:medication Associated Symptoms:no shortness of breath; no fatigue; no palpitations; no decline in exercise capacity; no snoringReflux/GERDReported bypatient.Severity:improving Context:non-smoker; no drug/alcohol abuse; no drug alcohol withdrawal; not related to food/drink Alleviating Factors:medication Associated Symptoms:no frequent coughing; no feeling of fullness/mass in throat; no hoarseness; no food getting stuck; no belching/burping; no vomiting; not vomiting blood; no regurgitation; no shortness of breath; no chest pain; no heartburn; no difficulty swallowing; no pain when swallowing; no bad taste; no decreased appetite; no weight loss; no black/tarry stools; no fatigue; no throat pain wellness VANCE Dumont [address] [facility], [facility] [address], [place], [address], [facility] 05/27/2023 23:53:21 OBGyn Episode No OBEpisode recorded.
--- OUTSIDE RECORDS SUMMARY | 2025-05-01 09:45 | XMS_ITS | Data Portability ---
Author Organization [facility] [place] Address [address] [facility] [place] [address] Care Team Providers Care Tabulating Clerk Name Role Phone AMMON ARTHUR Primary Care Provider Unavailab le Assessment Encounter Date Assessment Date Assessment LastModified by Organization Details LastModified Time 09/04/2024 09/04/2024 Mammogram is coming up due Not available 09/04/2024 10:49:26 04/03/2025 04/03/2025 Mammogram is scheduled on may 01, took a long time to get scheduled. Colonoscopy still to get this scheduled. Lab summary from October; Labs show cholesterol is still elevated in the triglycerides at 188 the total at 231. and the LDL at 137. I would recommend we boost her atorvastatin dose at this time. She is currently on 10 mg the chart says and I would recommend her going to 20 mg. Thyroid levels were both normal, liver function testing is normal, kidney function is normal, fasting sugars slightly elevated at 108 and she remains in prediabetes range at 6.3%. This remains extremely close to the 6.5% diabetes diagnosis. CBC blood counts are stable. Not available 04/03/2025 14:07:20 Plan of Treatment Reminders Order Date Submit Date Provider Last Modified By Organization Details Last Modified Time Details Appointments ANY 15 2024 01:15P VANCE Arreguin Not available Not available Not available Lab HbA1c (hemoglob in A1c), blood 2024 0617/2 025 [facility], [address] [place] [address] 2, [place], [address], 04/03/2025 14:18:39 CBC w/ auto diff 2024 025 [facility], [address] [facility], [facility] 2, [place], [address], 04/03/2025 14:18:39 hepatic function panel, serum 2024 025 [facility], [address] [place] [address], [facility] 2, [place], [address], 04/03/2025 14:18:39 BMP, serum or plasma 2024 025 [facility], [address] [place] [address], [facility] 2, [place], [address], 04/03/2025 14:18:39 TSH + free T4, serum 2024 025 [facility], [address] [place] [address], [facility], [place], [address], 04/03/2025 14:18:39 lipid panel, serum 2024 025 [facility], [address] [place] [address], [facility] 2, [place], [address], 04/03/2025 14:18:39 HbA1c (hemoglob in A1c), blood 2023 024 [facility], [address] [place] [address], [facility] 2, [place], [address], 11/15/2024 07:09:24 CBC w/ auto diff 2023 024 [facility], [facility], [facility] [address], [place], [address], 11/15/2024 07:09:25 hepatic function panel, serum 2023 024 [facility], [address] [place] [address], [facility] 2, [place], [address], 11/15/2024 07:09:22 BMP, serum or plasma 2023 024 [facility], [address] [facility], [facility], [place], [address], 11/15/2024 07:09:23 TSH + free T4, serum 2023 024 [facility], [address] [facility], [facility], [place], [address], 11/15/2024 07:09:21 lipid panel, serum 2023 024 [facility], [facility], [facility], [place], [address], 11/15/2024 07:09:20 HbA1c (hemoglob in A1c), blood 2023 024 [facility], [facility], [facility], [place], [address], 11/15/2024 09:11:02 CBC w/ auto diff 2023 024 [email or web address] [facility], [address] [facility], [facility], [place], [address], 02/26/2025 14:24:18 hepatic function panel, serum 2023 024 tcarterma [facility], [facility], [facility], [place], [address], 02/26/2025 14:24:19 BMP, serum or plasma 2023 024 tcarterma [facility], [address] [facility], [facility], [place], [address], 02/26/2025 14:24:19 TSH + free T4, serum 2023 024 tcarterma [facility], [address] [facility], [facility], [place], [address], 02/26/2025 14:24:19 lipid panel, serum 2023 [email or web address] [facility], [address] [facility], [address], [place], [address], 02/26/2025 14:24:19 Referral None recorded. Procedures colonosco py screening (PROC) [address] [facility], [address], [address], [place], [address], 04/04/2025 09:19:17 Surgeries None recorded. Imaging MAMMO, screening , digital, bilateral [address] (Imaging), [address] [place] [address] [place] [address], [phone], 04/04/2025 09:19:32 exercise stress echocardi ogram 2023 [facility] ([facility]iology [facility]), [address] [place] [address] [place] [address], [phone], 07/14/2024 10:34:38 US, duplex, renal artery [address] (Imaging), [address] [place] [address] [address], [place], [address], 05/25/2024 13:01:05 US, kidney 2023 024 [facility] (Imaging), [address] [place] [address] [place] [address], [phone], 05/12/2024 14:12:09 Medication Orders carvedilo l 6.25 mg tablet 2023 [id number], [address] [place], [place], [id number], 04/03/2025 14:18:38 amlodipin e 5 mg tablet [address] [facility] #12878, [address], [place], [place], [id number], 04/21/2024 15:02:16 pantopraz ole 40 mg tablet,de layed release 2023 [facility] #[id number], [address], [place], [place], [id number], 03/16/2024 13:19:11 losartan 100 mg-hydroc hlorothia zide 12.5 mg tablet [address] [facility] #27505, [address], [place], [place], [id number], 03/14/2024 16:02:18 amlodipin e 2.[address] [facility] #64411, [address], [place], [place], [id number], 09/04/2024 10:23:16 Patient TargetsNo targets recorded. Patient Instructions Encounter Date Encounter Id Patient Instructions Last Modified By Organization Details Last Modified Time 03/14/2024 [id number] A healthy lifestyle: care instructions Not available 03/28/2024 20:04:44 09/04/2024 [id number] A healthy lifestyle: care instructions Not available 09/04/2024 10:50:06 04/03/2025 [id number] benign paroxysma l positional vertigo (bppv): care instructions Not available 04/03/2025 14:20:06 ju maneuver a t home for vertigo: exercises Not available 04/03/2025 14:20:06 Reason for Referral None Reported. Results Created Date Observation Date Name Description Value Unit Range Abnormal Flag Note LastModifiedBy Organization Detail LastModifiedTime 11/14/20 24 11/15/2024 LIPID PANEL W/ CHOL/ HDL RATIO cholesterol, total 231 mg/dL 100-19 9 above high normal Not Available [facility] ([facility]) [address] [facility], [place], [address], 11/15/2024 07:09:20 11/14/20 24 11/15/2024 LIPID PANEL W/ CHOL/ HDL RATIO triglyceride s 188 mg/dL 0-149 above high normal Not Available [facility] ([facility]) [address] [facility], [place], [address], 11/15/2024 07:09:20 11/14/20 24 11/15/2024 LIPID PANEL W/ CHOL/ HDL RATIO HDL cholesterol 61 mg/dL >39 Not Available [facility] ([facility]) [address] [place], [address], 11/15/2024 07:09:20 11/14/20 24 11/15/2024 LIPID PANEL W/ CHOL/ HDL RATIO VLDL cholesterol laura 33 mg/dL 5-40 Not Available [facility] ([facility]) [address] [facility], [place], [address], 11/15/2024 07:09:20 11/14/20 24 11/15/2024 LIPID PANEL W/ CHOL/ HDL RATIO LDL chol calc ([facility]) 137 mg/dL 0-99 above high normal Not Available [facility] ([facility]) [address] [facility], [place], [address], 11/15/2024 07:09:20 11/14/20 24 11/15/2024 LIPID PANEL W/ CHOL/ HDL RATIO T. chol/HDL ratio 3.8 ratio 0.0-4. 4 T. Chol/ HDL Ratio Men Women 1/2 Avg.R isk 3.4 3.3 Avg.R isk 5.0 4.4 2X Avg.R isk 9.6 7.1 3X Avg.R isk 23.4 11.0 Not Available [facility] ([facility]) [address] [place], [address], 11/15/2024 07:09:20 11/14/20 24 11/15/2024 TSH+F REE T4 TSH 1.390 uIU/m L 0.450- 4.500 Not Available [facility] ([facility]) [address] [place], [address], 11/15/2024 07:09:21 11/14/20 24 11/15/2024 TSH+F REE T4 T4,free(dire ct) 1.31 NG/dL 0.82-1 .77 Not Available [facility] ([facility]) [address] [place], [address], 11/15/2024 07:09:21 11/14/2011/15/2024 HEPAT IC FUNCT ION PANEL (7) protein, total 6.7 g/dL 6.0-8. 5 Not Available [facility] ([facility]) [address] [place], [address], 11/15/2024 07:09:22 11/14/20 24 11/15/2024 HEPAT IC FUNCT ION PANEL (7) albumin 4.3 g/dL 3.9-4. 9 Not Available [facility] ([facility]) [address] [place], [address], 11/15/2024 07:09:22 11/14/20 24 11/15/2024 HEPAT IC FUNCT ION PANEL (7) bilirubin, total 0.4 mg/dL 0.0-1. 2 Not Available [facility] ([facility]) [address] [place], [address], 11/15/2024 07:09:22 11/14/20 24 11/15/2024 HEPAT IC FUNCT ION PANEL (7) bilirubin, direct 0.14 mg/dL 0.00-0 .40 Not Available [facility] ([facility]) [address] [place], [address], 11/15/2024 07:09:22 11/14/20 24 11/15/2024 HEPAT IC FUNCT ION PANEL (7) alkaline phosphatase 92 IU/L 44-121 Not Available [facility] ([facility]) [address] [place], [address], 11/15/2024 07:09:22 11/14/20 24 11/15/2024 HEPAT IC FUNCT ION PANEL (7) AST (SGOT) 25 IU/L 0-40 Not Available [facility] ([facility]) [address] [place], [address], 11/15/2024 07:09:22 11/14/20 24 11/15/2024 HEPAT IC FUNCT ION PANEL (7) ALT (SGPT) 27 IU/L 0-32 Not Available [facility] ([facility]) [address] [facility] [place], [address], 11/15/2024 07:09:22 11/14/20 24 11/15/2024 BMP7+ EGFR glucose 108 mg/dL 70-99 above high normal Not Available [facility] ([facility]) [address] [facility] [place], [address], 11/15/2024 07:09:23 11/14/20 24 11/15/2024 BMP7+ EGFR BUN 15 mg/dL 8-27 Not Available [facility] ([facility]) [address] [facility] [place], [address], 11/15/2024 07:09:23 11/14/20 24 11/15/2024 BMP7+ EGFR creatinine 0.70 mg/dL 0.57-1 .00 Not Available [facility] ([facility]) [address] [facility] [place], [address], 11/15/2024 07:09:23 11/14/20 24 11/15/2024 BMP7+ EGFR eGFR 95 mL/mi n/1.7 3 >59 Not Available [facility] ([facility]) [address] [facility] [place], [address], 11/15/2024 07:09:23 11/14/20 24 11/15/2024 BMP7+ EGFR sodium 142 mmol/ L 134-14 4 Not Available [facility] ([facility]) [address] [place], [address], 11/15/2024 07:09:23 11/14/20 24 11/15/2024 BMP7+ EGFR potassium 4.4 mmol/ L 3.5-5. 2 Not Available [facility] ([facility]) [address] [place], [address], 11/15/2024 07:09:23 11/14/20 24 11/15/2024 BMP7+ EGFR chloride 102 mmol/ L 96-106 Not Available [facility] ([facility]) [address] [place], [address], 11/15/2024 07:09:23 11/14/20 24 11/15/2024 BMP7+ EGFR carbon dioxide, total 27 mmol/ L 20-29 Not Available [facility] ([facility]) [address] [place], [address], 11/15/2024 07:09:23 11/14/20 24 11/15/2024 HEMOG LOBIN A1C hemoglobin A1C 6.3 % 4.8-5. 6 above high normal Predi abete s: 5.7 - 6.4 Diabe jah: >6.4 Glyce swapna contr ol for adult s with diabe jah: <7.0 Not Available [facility] ([facility]) [address] [place], [address], 11/15/2024 07:09:24 11/14/20 24 11/14/2024 CBC WITH DIFFE RENTI AL/PL ATELE T WBC 5.6 x10e3 /uL 3.4-10 .8 Not Available [facility] ([facility]) [address] [place], [address], 11/15/2024 07:09:25 11/14/20 24 11/14/2024 CBC WITH DIFFE RENTI AL/PL ATELE T RBC 4.62 x10e6 /uL 3.77-5 .28 Not Available [facility] ([facility]) [address] [facility], [place], [address], 11/15/2024 07:09:25 11/14/20 24 11/14/2024 CBC WITH DIFFE RENTI AL/PL ATELE T hemoglobin 14.6 g/dL 11.1-1 5.9 Not Available [facility] ([facility]) [address] [place], [address], 11/15/2024 07:09:25 11/14/20 24 11/14/2024 CBC WITH DIFFE RENTI AL/PL ATELE T hematocrit 45.0 % 34.0-4 6.6 Not Available [facility] ([facility]) [address] [place], [address], 11/15/2024 07:09:25 11/14/20 24 11/14/2024 CBC WITH DIFFE RENTI AL/PL ATELE T MCV 97 fL 79-97 Not Available [facility] ([facility]) [address] [place], [address], 11/15/2024 07:09:25 11/14/20 24 11/14/2024 CBC WITH DIFFE RENTI AL/PL ATELE T MCH 31.6 pg 26.6-3 3.0 Not Available [facility] ([facility]) [address] [place], [address], 11/15/2024 07:09:25 11/14/20 24 11/14/2024 CBC WITH DIFFE RENTI AL/PL ATELE T MCHC 32.4 g/dL 31.5-3 5.7 Not Available [facility] ([facility]) [address] [place], [address], 11/15/2024 07:09:25 11/14/20 24 11/14/2024 CBC WITH DIFFE RENTI AL/PL ATELE T RDW 12.8 % 11.7-1 5.4 Not Available [facility] ([facility]) [address] [facility], [place], [address], 11/15/2024 07:09:25 11/14/20 24 11/14/2024 CBC WITH DIFFE RENTI AL/PL ATELE T platelets 238 x10e3 /uL 150-45 0 Not Available [facility] ([facility]) [address] [facility], [place], [address], 11/15/2024 07:09:25 11/14/20 24 11/14/2024 CBC WITH DIFFE RENTI AL/PL ATELE T neutrophils 54 % notest ab. Not Available [facility] ([facility]) [address] [facility], [place], [address], 11/15/2024 07:09:25 11/14/20 24 11/14/2024 CBC WITH DIFFE RENTI AL/PL ATELE T lymphs 34 % notest ab. Not Available [facility] ([facility]) [address] [facility], [place], [address], 11/15/2024 07:09:25 11/14/20 24 11/14/2024 CBC WITH DIFFE RENTI AL/PL ATELE T monocytes 8 % notest ab. Not Available [facility] ([facility]) [address] [facility], [place], [address], 11/15/2024 07:09:25 11/14/20 24 11/14/2024 CBC WITH DIFFE RENTI AL/PL ATELE T eos 3 % notest ab. Not Available [facility] ([facility]) [address] [facility], [place], [address], 11/15/2024 07:09:25 11/14/20 24 11/14/2024 CBC WITH DIFFE RENTI AL/PL ATELE T basos 1 % notest ab. Not Available [facility] ([facility]) [address] [facility], [place], [address], 11/15/2024 07:09:25 11/14/20 24 11/14/2024 CBC WITH DIFFE RENTI AL/PL ATELE T neutrophils (absolute) 3.0 x10e3 /uL 1.4-7. 0 Not Available [facility] ([facility]) [address] [facility], [place], [address], 11/15/2024 07:09:25 11/14/20 24 11/14/2024 CBC WITH DIFFE RENTI AL/PL ATELE T lymphs (absolute) 1.9 x10e3 /uL 0.7-3. 1 Not Available [facility] ([facility]) [address] [place], [address], 11/15/2024 07:09:25 11/14/20 24 11/14/2024 CBC WITH DIFFE RENTI AL/PL ATELE T monocytes(ab solute) 0.5 x10e3 /uL 0.1-0. 9 Not Available [facility] ([facility]) [address] [place], [address], 11/15/2024 07:09:25 11/14/20 24 11/14/2024 CBC WITH DIFFE RENTI AL/PL ATELE T eos (absolute) 0.2 x10e3 /uL 0.0-0. 4 Not Available [facility] ([facility]) [address] [place], [address], 11/15/2024 07:09:25 11/14/20 24 11/14/2024 CBC WITH DIFFE RENTI AL/PL ATELE T baso (absolute) 0.0 x10e3 /uL 0.0-0. 2 Not Available [facility] ([facility]) [address] [place], [address], 11/15/2024 07:09:25 11/14/20 24 11/14/2024 CBC WITH DIFFE RENTI AL/PL ATELE T immature granulocytes 0 % notest ab. Not Available [facility] ([facility]) [address] [facility], [place], [address], 11/15/2024 07:09:25 11/14/20 24 11/14/2024 CBC WITH DIFFE RENTI AL/PL ATELE T immature grans (abs) 0.0 x10e3 /uL 0.0-0. 1 Not Available [facility] ([facility]) [address] [facility], [place], [address], 11/15/2024 07:09:25 05/12/20 24 05/12/2024 US, kidne y No observ ation record ed. [address] [place] [address], [address], 05/19/2024 09:40:48 07/14/20 24 07/06/2024 exerc ise stres s echoc ardio gram No observ ation record ed. [facility] ([facility]) [address] [place] [address] [place] [address], [phone], 07/14/2024 14:02:30 09/12/20 24 03/17/2021 MAMMO , scree rossi, digit al, bilat eral No observ ation record ed. [facility] [address] [place], [address], 09/12/2024 18:03:59 Result Notes None recorded. Problems Name Problem SNOMED Code Status Onset Date Resolution Date Notes Provider Name and Address Organization Details Recorded Time Benign essential hypertension 8539165 Active 2023 CA Mckeon [facility] 4 16:48:46 Gastroesophage al reflux disease 882781815 Active 2023 CA Mckeon [facility] 4 16:48:52 Hyperlipidemia 96436466 Active 2023 VANCE Dumont Attn: Accountrishi arteaga,[address] [facility], [place], [address], [place] [facility] 4 20:04:18 Gastroesophage al reflux disease without esophagitis 914081613 Active 2023 VANCE Dumont Attn: Jarad arteaga,[address] [place], [address], [place] [facility] 4 20:04:19 Long-term drug therapy Active 2023 VANCE Dumont Attn: Accountrishi g,[address] [facility], [place], [address], [place] [facility] 4 20:04:21 Obesity 459244090 Active 2023 VANCE Dumont Attn: Accountrishi arteaga,[address] [place], [address], [place] [facility] 4 20:04:51 Prediabetes 343189327 Active 2023 VANCE Dumont Attn: Jarad arteaga,[address] [place], [address], [place] [facility] 4 22:22:28 Overweight in adulthood with body mass index of 25 or more but less than 30 104360617 Active 2024 Beata Loya [place] null, [place] [facility] 5 13:55:26 Benign paroxysmal positional vertigo 223639289 Active 2024 VANCE Dumont Attn: Jarad arteaga,[address] [place], [address], [place] [facility] 5 13:27:58 Problem Notes None recorded. Procedures Surgical History Date Name Laterality Status Provider Name and Address Organization Details Recorded Time hysterectomy completed Beata Loya [place] [facility] 03/14/2024 15:27:26 Imaging Results None recorded. Procedure Notes None recorded. Medical Equipment None Reported. Allergies No known drug allergies Medications Name Sig Start Date Stop Date Status Note LastModified by Organization Details LastModified Time carvedilo l 6.25 mg tablet TAKE half TABLET BY MOUTH TWICE DAILY active Not Available Not Available No t Available atorvasta tin 20 mg tablet TAKE 1 TABLET BY MOUTH EVERY DAY active Not Available Not Available No t Available atorvasta tin 10 mg tablet TAKE 1 TABLET BY MOUTH EVERYDAY AT BEDTIME 11/30 completed dose increase d see labs Not Available Not Available Not Available azithromy sumi 250 mg tablet TAKE 2 TABLETS BY MOUTH TODAY, THEN TAKE 1 TABLET DAILY FOR 4 DAYS 03/14 completed Not Available Not Available Not Available Nystop 100,000 unit/gram topical powder APPLY TO THE AFFECTED AREA(S) with rash BY TOPICAL ROUTE 2 TIMES PER DAY active Not Available Not Available No t Available prednison e 20 mg tablet TAKE 2 TABLETS BY MOUTH EVERY DAY FOR 5 DAYS 03/14 completed Not Available Not Available Not Available amlodipin e 2.5 mg tablet TAKE 1 TABLET BY MOUTH EVERY DAY 09/04 completed Not Available Not Available Not Available amlodipin e 5 mg tablet TAKE 1 TABLET BY MOUTH EVERY DAY active Not Available Not Available No t Available benzonata te 100 mg capsule TAKE 1 CAPSULE BY MOUTH EVERY 8 HOURS NEEDED 03/14 completed Not Available Not Available Not Available pantopraz ole 40 mg tablet,de layed release TAKE 1 TABLET BY MOUTH EVERY DAY active Not Available Not Available No t Available nystatin 100,000 unit/gram topical cream Apply by topical route as needed for 30 days. active Not Available Not Available No t Available valsartan 320 mg tablet TAKE 1 TABLET BY MOUTH EVERY DAY 03/14 completed Not Available Not Available Not Available losartan 100 mg-hydroc hlorothia zide 12.5 mg tablet TAKE 1 TABLET BY MOUTH EVERY DAY active Not Available Not Available No t Available hydrochlo rothiazid e 12.5 mg tablet TAKE 1 TABLET BY MOUTH EVERY DAY IN THE MORNING 03/16 completed Not Available Not Available Not Available Vitals Date Recorded Systolic blood pressure Diastolic blood pressure Provider Name and Address Organization Details Last Updated DateTime 03/14/2024 170 mm[Hg] 100 mm[Hg] VANCE Dumont Attn: Accounting,[address] [facility], [place], [address], [place] [facility] 03/14/2024 15:58:21 Date Recorded Body height Respiratory rate Oxygen saturation Oxygen saturation in Arterial blood by Pulse oximetry Heart rate Body mass index (BMI) Body weight Systolic blood pressure Diastolic blood pressure Provider Name and Address Organization Details Last Updated DateTime 4 162.56 cm 20 /min 99 % 99 % 91 /min 31.4 kg/m2 32956.4 g 140 mm[Hg] 108 mm[Hg] Beata Loya MA [facility] 4 15:25:00 Date Recorded Respiratory rate Systolic blood pressure Diastolic blood pressure Systolic blood pressure Diastolic blood pressure Provider Name and Address Organization Details Last Updated DateTime 5 18 /min 110 mm[Hg] 70 mm[Hg] 108 mm[Hg] 70 mm[Hg] VANCE Dumont Attn: Accountin g,[address] [place], [address], [facility] 5 14:15:43 Date Recorded Body height Body mass index (BMI) Body weight Oxygen saturation Oxygen saturation in Arterial blood by Pulse oximetry Heart rate Systolic blood pressure Diastolic blood pressure Provider Name and Address Organization Details Last Updated DateTime 5 162.56 cm 29.7 kg/m2 99492.4 8 g 98 % 98 % 82 /min 126 mm[Hg] 82 mm[Hg] Beata Loya MA [facility] 5 13:56:41 Date Recorded Systolic blood pressure Diastolic blood pressure Systolic blood pressure Diastolic blood pressure Provider Name and Address Organization Details Last Updated DateTime 04/21/2024 160 mm[Hg] 90 mm[Hg] 150 mm[Hg] 90 mm[Hg] VANCE Dumont Attn: Accounting ,[address] [place], [address] , [facility] 4 14:47:31 Date Recorded Body height Body mass index (BMI) Body weight Heart rate Oxygen saturation Oxygen saturation in Arterial blood by Pulse oximetry Systolic blood pressure Diastolic blood pressure Provider Name and Address Organization Details Last Updated DateTime 4 162.56 cm 31.2 kg/m2 69257.9 6 g 75 /min 97 % 97 % 170 mm[Hg] 98 mm[Hg] Yvonne Hernández MA [facility] 14:23:56 Date Recorded Systolic blood pressure Diastolic blood pressure Provider Name and Address Organization Details Last Updated DateTime 09/04/2024 160 mm[Hg] 80 mm[Hg] VANCE Dumont Attn: Accounting,[address] [facility], [place], [address], [facility] 09/04/2024 10:51:42 Date Recorded Body height Body mass index (BMI) Body weight Respiratory rate Oxygen saturation Oxygen saturation in Arterial blood by Pulse oximetry Heart rate Systolic blood pressure Diastolic blood pressure Provider Name and Address Organization Details Last Updated DateTime 162.56 cm 31.6 kg/m2 76810 g 20 /min 98 % 98 % 75 /min 158 mm[Hg] 82 mm[Hg] Beata Loya MA [facility] 10:26:01 Social History Question Answer Notes LastModified by Organizat ion Details LastModified Time Tobacco Smoking Status Never Smoker quit 15 years ago Beata Loya MA null, [facility] 03/14/2024 15:21:52 Do You Have An Advance Directive? 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 No Glasses Information not available 03/14/2024 What Is Your Level Of Caffeine Consumption? Occasional Coffee Information not available 03/14/2024 In The 14 Days Before Symptom Onset, Have You Had Close Contact With A Laboratory-confi rmed COVID-19 While That Case Was Ill? No Information not available 03/14/2024 In The 14 Days Before Symptom Onset, Have You Had Close Contact With A Person Who Is Under Investigation For COVID-19 While That Person Was Ill? No Information not available 03/14/2024 Have You Been To An Area Known To Be High Risk For COVID-19? No Information not available 03/14/2024 Are You Deaf Or Do You Have Serious Difficulty Hearing? Yes Information not available 03/14/2024 What Type Of Diet Are You Following? REGULAR Information not available 03/14/2024 Are There Any Guns Present In Your Home? No Information not available 03/14/2024 What Was The Date Of Your Most Recent Tobacco Screening? 04/03/2025 Information not available 04/03/2025 Do You Use Your Seat Belt Or Car Seat Routinely? Yes Information not available 03/14/2024 Do You Have Smoke And Carbon Monoxide Detectors In Your Home? Yes Information not available 03/14/2024 Has Tobacco Cessation Counseling Been Provided? Yes Information not available 03/14/2024 On What Date Was Tobacco Cessation Counseling Provided? 04/03/2025 Information not available 04/03/2025 Sex: Unknown Functional Status Question Answer Note LastModified by Organizat ion Details LastModified Time Do you use any illicit or recreational drugs? No Information not available 03/14/2024 Do you or have you ever used any other forms of tobacco or nicotine? No Information not available 03/14/2024 What is your level of alcohol consumption? Occasional wine Information not available 03/14/2024 Are you currently employed? No retired Information not available 03/14/2024 Are you able to care for yourself? Yes Information not available 03/14/2024 What is your exercise level? Occasional walk Information not available 03/14/2024 Mental Status Question Answer Note LastModified by Organization D etails LastModified Time Do you feel stressed (tense, restless, nervous, or anxious, or unable to sleep at night)? [id number] Information not available 03/14/2024 Family History Relationship Description Onset Age of this Age Resolved Age Notes LastModified by Organization Details LastModified Time Sister Malignant tumor of colon [email or web address] Not available 2023 15:27:45 Mother Diabetes mellitus tcarterma Not available 2023 15:27:50 Mother Hypertensive disorder tcarterma Not available 2023 15:27:55 Medical History Condition Response Coronary Artery Disease N Other N High Blood Pressure Y Atrial Fibrillation N Kidney or Bladder Problems N Thyroid Problems N GI Problems N Depression N COPD N Blood Clots N Skin Problems N Anemia N Heart Attack (SD) N Anxiety Disorder N Diabetes Y Muscle, Joint, or Bone Problems N Seizures/Epilepsy N Acid Reflux (GERD) Y Cancer N Stroke N Asthma N Allergies N High Cholesterol Y Hepatitis N Liver Disease N Headaches N Heart Failure N Osteoporosis N Gynecological History Statement/Question Response Menses Monthly N Current Control Method Other Obstetrics History GPAL:G 0 P 0 0 0 0 Immunizations Vaccine Type Date Status Note Provider Nam e and Address Organization Details Recorded Time Influenza, high-dose, quadrivalent, PF 09/10/2022 completed [place], [place] [facility] 09/05/2024 16:55:24 COVID-19, mRNA, LNP-S, PF, 30 mcg/0.3 mL dose 03/27/2021 [place] [facility] 09/05/2024 16:55:24 COVID-19, mRNA, LNP-S, PF, 30 mcg/0.3 mL dose 04/24/2021 completed [place] [facility] 09/05/2024 16:55:24 COVID-19, mRNA, LNP-S, PF, 30 mcg/0.3 mL dose 11/07/2021 completed [place] [facility] 09/05/2024 16:55:24 Influenza, split virus, quadrivalent, PF 08/20/2021 completed [place] [facility] 09/05/2024 16:55:24 Influenza, split virus, quadrivalent, PF 09/15/2019 completed [place] [facility] 09/05/2024 16:55:24 Influenza, split virus, quadrivalent, PF 09/17/2017 completed [place] [facility] 09/05/2024 16:55:24 Past Encounters Encounter ID Performer Location Encounter Start Date Encounter Closed Date Diagnosis/Indication Diagnosis SNOMED-CT Code Diagnosis ICD10 Code Diagnosis Note [id number] Braden Hurtado MD [facility] [place] [facility] - [place] [address] [place] [address] 03/14/2024 15:02:48 03/14/2024 16:19:52 Benign essential hypertension 8052124 I10 BP high today 170/100: add amlodipine 2.5mg daily with losartan 100mg HCTZ 12.5mg daily.chec k home BPs. f/u april 21. Hyperlipidemia 88913183 E78.5 stable on statin therapy. due for labs fasting in aug. Gastroesop hageal reflux disease without esophagitis 873325064 K21.9 refill on PPI therapy. stable. Long-term drug therapy 402755700 Z79.899 labs are due in aug. Prediabetes 394599782 R7 3.03 following a1c. discussed healthy diet, exercise, controllin g carbohydra jah and added sugars in the diet Body mass index 30+ - obesity 712326236 Z68.31 Obesity 827788069 E66.9 discussed healthy diet, exercise, controllin g carbohydra jah and added sugars in the diet [id number] Braden Hurtado MD [facility] [address] [employer] [place] [address] 04/21/2024 14:14:29 05/01/2024 17:04:25 Benign essential hypertension 5171607 I10 BP high again today 150/90 on check: boost to amlodipine 5mg daily with losartan 100mg HCTZ 12.5mg daily.chec k home BP again. refer for u/s renal duplex and u/s renal. refer for stress Echo testing. [id number] Braden Hurtado MD [facility] [address] [employer] [address] 09/04/2024 10:12:29 09/04/2024 11:22:17 Benign essential hypertension 6782933 I10 BP high again today 160/90. add coreg 6.25mg bid Prediabetes 023720878 R7 3.03 following a1c. Due for updated lab. Discussed healthy diet, exercise, controllin g carbohydra jah and added sugars in the diet Hyperlipidemia 56128028 E78.5 stable on statin therapy. due for labs fasting in aug. Gastroesop hageal reflux disease without esophagitis 862308326 K21.9 refill on PPI therapy. stable. Long-term drug therapy 969339076 Z79.899 labs are due Body mass index 30+ - obesity 665386322 Z68.31 BMI is 31.6 Obesity 656016595 E66.9 discussed healthy diet, exercise, controllin g carbohydra jah and added sugars in the diet Screening for malignant neoplasm of colon 873071724 Z12.11 Refer for colonoscop y screening that is due Screening mammography 24 727606 Z12.31 Refer for mammogram that is due [id number] Braden Hurtado MD [facility] [place] [address] [place] [address] 04/03/2025 13:35:52 04/03/2025 14:40:23 Overweight in adulthood with body mass index of 25 or more but less than 30 239202639 E66.3 Z68.29 discussed healthy diet, exercise, controllin g carbohydra jah and added sugars in the diet Benign ess ential hypertension 1467665 I10 Blood pressure is now 108/70 with her weight loss and excellent diet and lifestyle modificati ons. She may decrease to carvedilol 3.125mg bid. Prediabetes 970956994 R7 3.03 6.3% A1c. Repeat labs are due in April and were hoping for an improvemen t Hyperlipidemia 25362726 E78.5 stable on statin therapy. Continue atorvastat in 20 mg daily and check fasting lipids in April Gastroesop hageal reflux disease without esophagitis 907809428 K21.9 Stable on pantoprazo le 40 mg daily Long-term drug therapy 835490813 Z79.899 labs are due in April Benign par oxysmal positional vertigo 359000391 H81.13 ? vertigo vs. blood pressure low at times. will adjust coreg first. Home exercises given for Ju maneuver Health Concerns Section Related Observation LastModified by Organization Detai ls LastModified Time None Recorded Concern Status LastModified by Organization Details LastModified Time None Recorded Advance Directives Directive N: power of workers compensation attorney Payers Encounter Date Sequence Insurance Name Policy Number Policy Diez Covered Member ID Diez Member ID Guarantor Name 03/14/2024 1 [place] Tameka Camargo [id number] Tameka Camargo 03/14/2024 2 [employer] (MEDICARE SUPPLEMENT) Tameka Raman [id number] Tameka Raman 04/21/2024 2 [employer] (MEDICARE SUPPLEMENT) Tameka Raman [id number] Tameka Raman 04/21/2024 [place] [facility] Tameka Raman [id number] Tameka Raman 09/04/2024 2 [employer] (MEDICARE SUPPLEMENT) Tameka Raman [id number] Tameka Raman 09/04/2024 [place] [facility] Tameka Raman [id number] Tameka Raman 04/03/2025 1 [place] Tameka S Raman [id number] Tameka Raman 04/03/2025 2 [employer] (MEDICARE SUPPLEMENT) Tameka Raman [id number] Tameka Raman Notes Date Note Type Note Provider Name and Address Organization Details Recorded Time 4 text/htm l HyperlipidemiaReported bypatient.Notes:stable on atorvastatin 10mg therapy.HypertensionReported bypatient.Notes:on losartan hctz 100/12.5mg now. she used to be on valsartan hctz.Reflux/GERDReported bypatient.Notes:stable on pantoprazole 40mg daily. VANCE Dumont Attn: Accounting,[address] [facility], [place], [address], [facility] 03/28/2024 20:05:04 4 text/htm l HypertensionReported bypatient.Notes:on losartan hctz 100/12.5mg and now amlodipine 2.5mg daily that was added last month. she is tolerating amlodipine addition well but bP is still high on first check today. VANCE Dumont Attn: Accounting,[address] [facility], [place], [address], [facility] 04/29/2024 21:46:13 4 text/htm l HyperlipidemiaReported bypatient.Notes:stable on atorvastatin 10mg therapy. Due for updated labsHypertensionReported bypatient.Notes:on losartan hctz 100/12.5mg now. Patient is still having blood pressure elevationReflux/GERDReported bypatient.Notes:stable on pantoprazole 40mg daily. No complaints VANCE Dumont Attn: Accounting,[address], [place], [address], [facility] 09/24/2024 22:23:23 5 text/htm l HyperlipidemiaReported bypatient.Notes:stable on atorvastatin 20mg therapy. Due for updated labsHypertensionReported bypatient.Notes:on losartan hctz 100/12.5mg and amlodipine 5 mg daily and carvedilol 6.25 mg twice dailyReflux/GERDReported bypatient.Notes:stable on pantoprazole 40mg daily. No complaints VANCE Dumont Attn: Accounting,[address], [place], [address], [facility] 04/23/2025 13:40:28 OBGyn Episode No OBEpisode recorded.
--- OUTSIDE RECORDS SUMMARY | 2025-05-01 09:45 | XMS_ITS | Encounter Summary ---
Author Organization [facility] Address [address] [place] [address] Care Team Providers Care Registered Dental Hygienist Name Role Phone Vel Alston DO Primary Care Provider Encounter Details Date Type Department Care Team (Latest Contact Info) Description 10/07/2004 Outpatient Historical HIS [facility] KARINA Arana Jr., Martha Portillo MD NO ADDRESS ON FILE SOLITARY CYST OF BREAST (Primary Dx) Social History Tobacco Use Types Packs/Day Years Used Date Smoking Tobacco: Never Assessed Comments Unknown Sex and Gender Information Value Date Recorded Sex Assigned at Not on file Legal Sex Female 2:43 AM [employer] Gender Identity Not on file Sexual Orientation Not on file documented as of this encounter Plan of Treatment Not on file documented as of this encounter Visit Diagnoses Diagnosis Solitary cyst of breast- Primary documented in this encounter Care Teams Registered Dental Hygienist Relationship Specialty Start Date End Date Vel Alston DO PCP - General 11/14/15 documented as of this encounter
== END 2025-05-01 09:28 | disposition home or self-care (01) ==
PROVIDERS: PCP Physician Assistant; Visit Provider Physician Assistant
DX: Z12.31 Encounter for screening mammogram for malignant neoplasm of breast (principal)
CPT/HCPCS: 77063; 77067